=== PATIENT | male | born 1950 | race Caucasian/White ===

== ENCOUNTER → 2019-12-29 | Outpatient (CLI) | payer MEDICARE, BC ==
[2019-12-30 16:10] LABS: CORONAVIRUS (COVID19) CSH-NRL Negative (Negative)
== END | disposition home or self-care (01) ==
LOC: LAB EV 09:16 → LAB SHORT 09:16
PROVIDERS: Physician Assistant Medical
DX: R50.9 Fever, unspecified (principal); Z20.828 Contact with and (suspected) exposure to other viral communicable diseases
CPT/HCPCS: U0003

== ENCOUNTER → 2020-02-15 | Outpatient (CLI) | payer MEDICARE, BC | END | disposition home or self-care (01) | LOC: LAB SHORT 13:30 | DX: R35.0 Frequency of micturition (principal) | CPT/HCPCS: 87077; 87086; 87186 ==

== ENCOUNTER → 2020-03-10 | Outpatient (CLI) | payer MEDICARE, BC ==
[2020-03-10 11:20] LABS: BASOPHILS ABSOLUTE AUTO 0.05 K/mm3 (0.00-0.23); BASOPHILS PERCENT AUTO 1 % (0-2); EOSINOPHILS ABSOLUTE AUTO 0.22 K/mm3 (0.00-0.68); EOSINOPHILS PERCENT AUTO 3 % (0-6); Hematocrit 42.8 % (37.0-53.0); Hemoglobin 13.9 g/dL (13.5-17.5); IMMATURE GRAN ABSOLUTE AUTO 0.04 K/mm3 (0.00-0.10); IMMATURE GRAN PERCENT AUTO 1 % (0-1); LYMPHOCYTES ABSOLUTE AUTO 1.75 K/mm3 (0.84-5.20); LYMPHOCYTES PERCENT AUTO 20 % (21-46); MONOCYTES ABSOLUTE AUTO 0.58 K/mm3 (0.16-1.47); MONOCYTES PERCENT AUTO 7 % (4-13); Mean Corpuscular HGB 28.7 pg (26.0-34.0); Mean Corpuscular HGB Conc 32.5 g/dL (31.5-36.5); Mean Corpuscular Volume 88 fL (80-100); Mean Platelet Volume 12.6 fL (9.1-12.4); NEUTROPHILS ABSOLUTE AUTO 5.94 K/mm3 (1.96-9.15); NEUTROPHILS PERCENT AUTO 69 % (41-73); Platelet Count 183 K/mm3 (150-400); RDW Coefficient Variation 13.4 % (11.7-14.2); RDW Standard Deviation 43.3 fL (35.1-46.3); Red Blood Cell Count 4.85 M/mm3 (4.30-5.90); White Blood Cell Count 8.58 K/mm3 (4.00-11.30)
[2020-03-10 11:48] LABS: Percent Saturation 33.9 % (20.0-50.0)
[2020-03-10 13:37] LABS: Alanine Aminotransfer (ALT/SGP 28 U/L (12-78); Albumin, Blood 4.3 g/dL (3.4-5.0); Albumin/Globulin Ratio 1.2 (0.8-1.8); Alk Phos 120 U/L (50-136); Anion Gap 6 mmol/L (6-16); Aspartate Aminotrans (AST/SGOT 18 U/L (12-37); Bilirubin, Direct <0.1 mg/dL (0.0-0.3); Bilirubin, Indirect Unable to Calculate mg/dL (0.1-0.7); Bilirubin, Total 0.5 mg/dL (0.1-1.0); Blood Urea Nitrogen 41 mg/dL (8-24); Bun/Creatinine Ratio 17.9 (12.0-20.0); CO2, Blood 23 mmol/L (21-32); Calcium, Blood 8.9 mg/dL (8.5-10.1); Chloride, Blood 111 mmol/L (98-108); Creatinine, Blood 2.29 mg/dL (0.60-1.20); Globulin, Blood 3.5 g/dL (2.2-4.0); Glomerular Filtration Rate 30 (60-); Glucose, Blood 92 mg/dL (70-99); Phosphorus, Blood 4.3 mg/dL (2.5-4.9); Potassium, Blood 6.7 mmol/L (3.5-5.5); Sodium, Blood 140 mmol/L (136-145); Total Protein, Blood 7.8 g/dL (6.4-8.2)
[2020-03-13 15:08] LABS: METANEPH/CREAT RATIO 0.3 (0.0-1.0)
[2020-03-14 06:10] LABS: ANTIGLOMERULAR BM AB 5 units (0-20)
[2020-03-14 15:10] LABS: A/G RATIO 1.3 (0.7-1.7); ALBUMIN 4.1 g/dL (2.9-4.4); ALPHA-1-GLOBULIN 0.2 g/dL (0.0-0.4); ALPHA-2-GLOBULIN 0.8 g/dL (0.4-1.0); BETA GLOBULIN 1.1 g/dL (0.7-1.3); GAMMA GLOBULIN 1.3 g/dL (0.4-1.8); GLOBULIN, TOTAL 3.4 g/dL (2.2-3.9); IMMUNOGLOBULIN A, QN, SERUM 239 mg/dL (61-437); IMMUNOGLOBULIN G, QN, SERUM 1137 mg/dL (603-1613); IMMUNOGLOBULIN M, QN, SERUM 55 mg/dL (20-172); M-SPIKE Not Observed g/dL (Not Observed); PROTEIN, TOTAL, SERUM 7.5 g/dL (6.0-8.5)
[2020-03-16 13:10] LABS: ANA DIRECT Negative (Negative); ANTIMYELOPEROXIDASE (MPO) ABS <9.0 U/mL (0.0-9.0); ANTIPROTEINASE 3 (PR-3) ABS <3.5 U/mL (0.0-3.5); ATYPICAL PANCA <1:20 titer (Neg:<1:20); CYTOPLASMIC (C-ANCA) <1:20 titer (Neg:<1:20); PERINUCLEAR (P-ANCA) <1:20 titer (Neg:<1:20)
== END ==
LOC: LAB 10:20 → LAB SHORT 10:20
PROVIDERS: Internal Medicine Nephrology
DX: N18.30 Chronic kidney disease, stage 3 unspecified (principal); D63.1 Anemia in chronic kidney disease; N25.81 Secondary hyperparathyroidism of renal origin; E55.9 Vitamin D deficiency, unspecified; E78.00 Pure hypercholesterolemia, unspecified; D51.8 Other vitamin B12 deficiency anemias; D52.8 Other folate deficiency anemias; D50.9 Iron deficiency anemia, unspecified; R76.9 Abnormal immunological finding in serum, unspecified; R94.5 Abnormal results of liver function studies; R94.6 Abnormal results of thyroid function studies
CPT/HCPCS: 80053; 82088; 82248; 82570; 82607; 82728; 82746; 82784; 83516; 83520; 83540; 83550; 83835; 84100; 84165; 84244; 84443; 85025; 86038; 86256; 86334; 86720

== ENCOUNTER → 2020-08-15 | Outpatient (CLI) | payer MEDICARE, BC | END | disposition home or self-care (01) | LOC: LAB SHORT 12:45 → LAB 12:45 | DX: D48.5 Neoplasm of uncertain behavior of skin (principal) | CPT/HCPCS: 88305 ==

== ENCOUNTER → 2020-11-29 | Outpatient (CLI) | payer MEDICARE, BC | END | disposition home or self-care (01) | LOC: LAB SHORT 14:47 → LAB 14:47 | DX: L57.0 Actinic keratosis (principal) | CPT/HCPCS: 88305 ==

== ENCOUNTER → 2021-12-24 | Outpatient (CLI) | payer MEDICARE | LOC: PLD 08:09 → LAB SHORT 08:09 | DX: L72.9 Follicular cyst of the skin and subcutaneous tissue, unspecified (principal) | CPT/HCPCS: 88304 ==

== ENCOUNTER → 2023-02-26 | Outpatient (CLI) | payer MEDICARE, OTHER | LOC: LAB 11:23 → LAB SHORT 11:23 | DX: C61 Malignant neoplasm of prostate (principal); N39.0 Urinary tract infection, site not specified | CPT/HCPCS: 87086 ==

== ENCOUNTER 2024-09-02 14:16 | Observation (INO) | payer MEDICARE, OTHER ==
[~2024-09-02] VITALS: Ht 177.8 cm; Wt 88.5 kg
[2024-09-02 17:52] VITALS: BP 166/88
[2024-09-02] MEDS ORDERED: LOSA25 PO (17:53)
[2024-09-02] MEDS ORDERED: VITAMIN D31000 UNI1 PO (17:54)
[2024-09-02] MEDS ORDERED: OMEGA-3 FISH O1 EA21 PO (17:55)
--- NOTE | 2024-09-02 19:23 | NUR ---
ADMIT NOTE PT DIRECT ADMIT; PATIENT TO ROOM AT 1738. PT ORIENTED TO ROOM AND CALL LIGHT. PT ALERT, ORIENTED X4; CALM AND COOPERATIVE WITH CARE. PT DENIES PAIN, CHEST PAIN/PRESSURE, SOB, NAUSEA, DIZZINESS AND NUMB/TINGLING. TELE SINUS 60'S, BP ELEVATED. SPO2 >90% ON RA, BREATHING EVEN AND UNLABORED. ABD SOFT, NONTENDER +BT. NO EDEMA NOTED. OTHER VSS. REPORT GIVEN TO ONCOMING RN.
[2024-09-02 21:07] VITALS: BP 147/74
--- NOTE | 2024-09-02 23:11 | NUR ---
ASSUMPTION OF CARE THIS RN ASSUMED CARE OF PATIENT AT 1900. PT A&O X4. ABLE TO MAKE NEEDS KNOWN. INDEPENDENT WITH ADL'S. REPORTING CONTINUED RIGHT SIDED JAW/EAR RADIATING PAIN THAT IS "RANDOM" AND COMES/GOES. PROVIDER AWARE. MD HAIR TO BEDSIDE AROUND 2029 TO ASSESS PATIENT. VERBAL ORDER FOR ECHO AND TO RESTART HOME [place]. MD HAIR VERBALIZED TO PLAN FOR 1 DAY STRESS TEST TO THIS RN AND PATIENT WHILE AT BEDSIDE. PT WILL BE NPO AT MIDNIGHT. SB/SR ON MONITOR. DENIES CHEST PAIN/PRESSURE AND SOB. VSS. BED IN LOWEST POSITION AND CALL LIGHT WITHIN REACH.
[2024-09-03 00:26] VITALS: BP 150/70
[2024-09-03 04:29] VITALS: BP 144/78
[2024-09-03 04:38] LABS: BASOPHILS ABSOLUTE AUTO 0.04 K/mm3 (0.00-0.23); BASOPHILS PERCENT AUTO 1 % (0-2); EOSINOPHILS ABSOLUTE AUTO 0.38 K/mm3 (0.00-0.68); EOSINOPHILS PERCENT AUTO 5 % (0-6); Hematocrit 42.4 % (37.0-53.0); Hemoglobin 14.0 g/dL (13.5-17.5); IMMATURE GRAN ABSOLUTE AUTO 0.04 K/mm3 (0.00-0.10); IMMATURE GRAN PERCENT AUTO 1 % (0-1); LYMPHOCYTES ABSOLUTE AUTO 1.46 K/mm3 (0.84-5.20); LYMPHOCYTES PERCENT AUTO 19 % (21-46); MONOCYTES ABSOLUTE AUTO 0.79 K/mm3 (0.16-1.47); MONOCYTES PERCENT AUTO 10 % (4-13); Mean Corpuscular HGB Conc 33.0 g/dL (31.5-36.5); Mean Corpuscular Volume 90 fL (80-100); NEUTROPHILS ABSOLUTE AUTO 5.16 K/mm3 (1.96-9.15); NEUTROPHILS PERCENT AUTO 66 % (41-73); NRBC ABSOLUTE 0.00 K/mm3 (0.00-0.02); NRBC Auto 0.0 /100 WBC (0.0-0.2); Platelet Count 155 K/mm3 (150-400); RDW Coefficient Variation 13.6 % (11.7-14.2); RDW Standard Deviation 44.8 fL (35.1-46.3)
--- NOTE | 2024-09-03 04:55 | NUR ---
SHIFT SUMMARY SEE PREVIOUS NOTE NO ACUTE CHANGES OVERNIGHT. PT STATES THAT HE HAS NOT HAD ANY JAW/EAR/SHOULDER PAIN DURING THE NIGHT. ON RA. SB/SR ON MONITOR. DENIES CHEST PAIN/PRESSURE. OTHER VSS. INDEPENDENT WITH ADL'S. PT HAS BEEN NPO SINCE MIDNIGHT FOR STRESS TEST THIS AM. BED IN LOWEST POSITION AND CALL LIGHT WITHIN REACH. THIS RN WILL REPORT TO ONCOMING DAYSHIFT RN.
[2024-09-03 05:18] LABS: Alanine Aminotransfer (ALT/SGP 30.0 U/L (12-78); Albumin, Blood 3.4 g/dL (3.4-5.0); Albumin/Globulin Ratio 1.2 (0.8-1.8); Anion Gap 7.0 mmol/L (3-11); Aspartate Aminotrans (AST/SGOT 23.0 U/L (12-37); Bilirubin, Total 0.5 mg/dL (0.1-1.0); Blood Urea Nitrogen 23.0 mg/dL (8-24); CO2, Blood 27.0 mmol/L (21-32); Calcium, Blood 8.2 mg/dL (8.5-10.1); Chloride, Blood 110.0 mmol/L (98-108); Creatinine, Blood 1.4 mg/dL (0.60-1.20); Globulin, Blood 2.8 g/dL (2.2-4.0); Glucose, Blood 100.0 mg/dL (70-99); Magnesium, Blood 2.1 mg/dL (1.6-2.4); Potassium, Blood 4.0 mmol/L (3.5-5.5); Sodium, Blood 140.0 mmol/L (136-145); Total Protein, Blood 6.2 g/dL (6.4-8.2)
[2024-09-03 07:54] VITALS: BP 164/98
[2024-09-03] MEDS ORDERED: Enoxaparin 40 MG/0.4 ML SYR SC SCH (09:00)
[2024-09-03 11:48] VITALS: BP 166/83
[2024-09-03 15:19] VITALS: BP 102/61
--- NOTE | 2024-09-03 17:08 | NUR ---
SHIFT SUMMARY: PT ALERT AND ORIENTED X4, ABLE TO FOLLOW COMMANDS AND MAKE NEEDS KNOWN. STRENGTH EQUAL BILATERALLY. BP AND HR STABLE. DENIES CP/PRESSURE. AFEBRILE. SPO2 >98% ON ROOM AIR. LUNG SOUNDS CLEAR THROUGHOUT. FIRST PORTION OF STRESS TEST COMPLETED THIS AM, PT TOLERATED WELL. NPO AT 0000 FOR SECOND PORTION IN AM. ECHO COMPLETED THIS AFTERNOON. PT IND TO AND FROM BATHROOM. BED IN LOW, CALL LIGHT IN REACH, WILL REPORT TO ONCOMING RN.
[2024-09-03 19:46] VITALS: BP 145/80
[2024-09-04 00:04] VITALS: BP 119/69
--- NOTE | 2024-09-04 04:56 | NUR ---
SHIFT SUMMARY PT A&O X4. ABLE TO MAKE NEEDS KNOWN. INDEPENDENT WITH ADL'S. DENIES CHEST PAIN/PRESSURE, SOB, AND NECK/JAW/EAR PAIN. ON RA. SB/SR WITH HR 50-60. BP STABLE. PT HAS BEEN NPO SINCE MIDNIGHT FOR 2ND PORTION OF STRESS TEST THIS AM. BED IN LOWEST POSITION AND CALL LIGHT WITHIN REACH. THIS RN WILL REPORT TO ONCOMING DAYSHIFT RN.
[2024-09-04 07:19] VITALS: BP 136/74
--- NOTE | 2024-09-04 07:29 | NUR ---
UPDATE: HC AT BEDSIDE TO COMPLETE SECOND PORTION OF STRESS TEST. VSS.
[2024-09-04 11:06] VITALS: BP 140/87
--- NOTE | 2024-09-04 13:49 | NUR ---
DISCHARGE: PT D/C U 16 @6536. DISCHARGE INSTRUCTIONS AND EDUCATION PROVIDED. ALL BELONGINGS WITH PT.
== END 2024-09-04 13:40 | disposition home or self-care (01) ==
LOC: PCU 14:16
PROVIDERS: ADMIT Internal Medicine
DX: R07.89 Other chest pain (principal); I12.9 Hypertensive chronic kidney disease with stage 1 through stage 4 chronic kidney disease, or unspecified chronic kidney disease; N18.31 Chronic kidney disease, stage 3a; E78.5 Hyperlipidemia, unspecified; I20.89 Other forms of angina pectoris; Z88.8 Allergy status to other drugs, medicaments and biological substances; Z79.899 Other long term (current) drug therapy
CPT/HCPCS: 36415; 78452; 80053; 83735; 84443; 84484; 85025; 85027; 93017; 93306; A9270; A9500; G0378; J1650; J2785

== ENCOUNTER 2024-12-13 06:13 | Day surgery (SDC) | payer MEDICARE, OTHER ==
[2024-12-13] VITALS (30 sets, daily range): BP systolic 118–206; BP diastolic 72–116
[~2024-12-13] VITALS: Ht 177.8 cm; Wt 87.8 kg
[~2024-12-13 06:13] MED LIST: ATOR40TA PO; Aspir 8181 MG PO; LOSA25 PO; METO25ER PO; OMEGA-3 FISH O1 EA21 PO; VITAMIN D31000 UNI1 PO
--- NOTE | 2024-12-13 07:53 | NUR ---
12/13/24 0753 Napoleon Gray CONFIRMED AND REVIEWED H&P, MEDCICATIONS, ALLERGIES, MEDICAL HISTORY, RESPIRATORY HISTORY, VITAL SIGNS, 3-LEAD EKG, CONSENTS, AND PHYSICIAN ORDERS. PATIENT CONFIRMS NPO STATUS AND AGREES WITH SCHEDULED PROCEDURE. MONITOR INTACT WITH CONTINUOUS PULSE OXIMETRY, CAPNOGRAPHY, 3-LEAD EKG, INTERMITTENT BP. SUPPLEMENTAL O2 TO BE TITRATED THROUGHOUT PROCEDURE TO MAINTAIN O2 SATURATION ABOVE 90%. PATIENT DETERMINED TO BE ASA APPROPRIATE FOR PROPOFOL SEDATION PRIOR TO START OF PROCEDURE BY DR. PANDEY.
[2024-12-13] MEDS ORDERED: Glycopyrrolate 0.2 MG/ML 1MLVIAL ONE (08:00)
--- NOTE | 2024-12-13 09:10 | NUR ---
Patient up to Ambulate independently. Gait steady. Discharge instructions reviewed with patient. Patient verbalizes understanding. Copy given to patient to take home, [facility] FAMILY. Patient States Post-Procedure ride home has been arranged. Discharged via wheelchair to private car for ride home. PT DECLINES PO. DENIES PAIN,N/V. REPORTS READY TO GO HOME.
== END 2024-12-13 09:10 | disposition home or self-care (01) ==
LOC: ORSCMMR 06:13 → ORD 07:30 → ORSCMMR 09:10 → ORD 12-29 12:30
PROVIDERS: Family Medicine
PROC: 0DBP8ZX Excision of Rectum, Via Natural or Artificial Opening Endoscopic, Diagnostic (ICD-10-PCS; principal; 2024-12-13 07:30)
PROC: 0DBL8ZX Excision of Transverse Colon, Via Natural or Artificial Opening Endoscopic, Diagnostic (ICD-10-PCS; principal; 2024-12-13 07:30)
DX: K92.1 Melena (principal); D12.8 Benign neoplasm of rectum; D12.3 Benign neoplasm of transverse colon; K64.8 Other hemorrhoids; K64.4 Residual hemorrhoidal skin tags; Z79.899 Other long term (current) drug therapy; N40.1 Benign prostatic hyperplasia with lower urinary tract symptoms; Z86.16 Personal history of COVID-19; I10 Essential (primary) hypertension; Z85.820 Personal history of malignant melanoma of skin
CPT/HCPCS: 88305; J2704; J7120